=== PATIENT | male | born 1950 ===

== ENCOUNTER 2017-11-06 13:05 | Outpatient (CLI) | payer OTHER ==
[~2017-11-06] VITALS: Ht 152.4 cm; Wt 88.5 kg
== END 2017-11-06 13:20 | disposition home or self-care (01) ==
LOC: OFIC 805 13:05
DX: H92.01 Otalgia, right ear (principal); M26.69 Other specified disorders of temporomandibular joint

== ENCOUNTER 2017-11-13 10:48 | Outpatient (CLI) | payer OTHER ==
[~2017-11-13] VITALS: Ht 152.4 cm; Wt 88.5 kg
== END 2017-11-13 11:05 | disposition home or self-care (01) ==
LOC: OFIC 805 10:48
DX: H92.01 Otalgia, right ear (principal)